=== PATIENT | female | born 2000 | race Caucasian/White ===

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

== ENCOUNTER → 2018-06-06 | Outpatient (CLI) | payer OTHER ==
--- NOTE | 2018-06-07 07:23 | US ---
EXAMINATION TYPE: US pelvic complete DATE OF EXAM: 06/06/2018 COMPARISON: NONE CLINICAL HISTORY: N92.1 Menometrorrhagia. TECHNIQUE: . Transabdominal sonographic images of the pelvis were acquired. Date of LMP: 05/27/2018 EXAM MEASUREMENTS: Uterus: 6.5 x 3.0 x 3.8 cm Endometrial Stripe: 0.1 cm Right Ovary: 2.2 x 2.3 x 2.7 cm Left Ovary: 2.2 x 1.7 x 2.0 cm 1. Uterus: Anteverted wnl 2. Endometrium: wnl 3. Right Ovary: wnl 4. Left Ovary: wnl 5. Bilateral Adnexa: wnl 6. Posterior cul-de-sac: wnl IMPRESSION: No distinct abnormality appreciated.
== END | disposition home or self-care (01) ==
LOC: RADUSWWP 16:03
PROVIDERS: ATTEND Obstetrics & Gynecology
DX: N92.1 Excessive and frequent menstruation with irregular cycle (principal)
CPT/HCPCS: 76856

== ENCOUNTER 2018-09-15 15:40 | Emergency (ER) | payer OTHER ==
[2018-09-15] MEDS ORDERED: IBUPROFEN 600 MG TAB PO STA (16:07)
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
[2018-09-15 16:32] LABS: Appearance,Urine Cloudy (Clear); Bilirubin,Urine Negative (Negative); Blood,Urine Moderate (Negative); Color,Urine Yellow; Glucose,Urine (UA) Negative (Negative); Ketones,Urine Negative (Negative); Leukocyte Esterase,Urine Large (Negative); Mucus,Urine Many /hpf; Nitrite,Urine Negative (Negative); Protein,Urine Trace (Negative); RBC,Urine >182 /hpf (0-5); Specific Gravity,Urine 1.023 (1.001-1.035); Squamous Epithelial Cell,Urine 5 /hpf (0-4); Urobilinogen,Urine <2.0 mg/dL (<2.0)
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
[2018-09-15 20:20] VITALS: BP 138/80; PULSE 71; RESP 16; TEMP 98.2
== END 2018-09-15 20:18 | disposition home or self-care (01) ==
LOC: EC 15:40
DX: N12 Tubulo-interstitial nephritis, not specified as acute or chronic (principal); R51 Headache; M54.2 Cervicalgia; Z79.899 Other long term (current) drug therapy; Z88.0 Allergy status to penicillin; Z88.1 Allergy status to other antibiotic agents; Z88.2 Allergy status to sulfonamides
CPT/HCPCS: 81001; 81025; 87086; 72082; 99284; 96365; J0696

== ENCOUNTER → 2020-06-11 | Outpatient (CLI) | payer OTHER | END | disposition home or self-care (01) | LOC: LABWHC1 15:54 | PROVIDERS: ATTEND Family Medicine | DX: Z20.828 Contact with and (suspected) exposure to other viral communicable diseases (principal) | CPT/HCPCS: U0003; C9803 ==